=== PATIENT | female | born 1995 | race Caucasian/White ===

== ENCOUNTER 2017-03-16 17:45 | Emergency (ER) | payer SELFPAY ==
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
[2017-03-16 19:47] VITALS: BP 96/58
== END 2017-03-16 19:44 | disposition home or self-care (01) ==
LOC: ED 17:45
DX: M54.2 Cervicalgia (principal); Z88.0 Allergy status to penicillin
CPT/HCPCS: 72050; 99282